=== PATIENT | male | born 1960 | race Caucasian/White ===

== ENCOUNTER → 2023-04-11 | Outpatient (CLI) | payer OTHER, SELFPAY ==
--- NOTE | 2023-04-11 16:40 | RAD_ITS ---
INDICATION: SOB -- STAT EXAMINATION/TECHNIQUE: X-RAY - XR Chest 2 Views COMPARISON: None. FINDINGS: Right lower lobe consolidation. The cardiomediastinal silhouette is unremarkable. No pleural effusion or pneumothorax. Degenerative changes of the thoracic spine. RAD/Chest PA and Lateral IMPRESSION: Right lower lobe pneumonia. Electronically Signed: Cory Diallo MD at 18:53 EST ,
== END | disposition home or self-care (01) ==
PROVIDERS: PCP Family Medicine; Referring Provider Internal Medicine Pulmonary Disease; Visit Provider Internal Medicine Pulmonary Disease
DX: R06.02 Shortness of breath (principal)
CPT/HCPCS: 71046

== ENCOUNTER → 2023-04-28 | Outpatient (CLI) | payer OTHER, SELFPAY ==
--- NOTE | 2023-04-28 07:20 | CT_ITS ---
INDICATION: RIGHT LUNG HERNIATION EXAMINATION: CT CHEST WITHOUT CONTRAST - CT Chest W/O Contrast Injection TECHNIQUE: Helically acquired images were obtained of the chest. A radiation dose optimization technique was used for this scan. IV Contrast dosage and agent: None. RADIATION DOSAGE (If Supplied By Facility): CTDIvol = ( 19.56 ) mGy, DLP = ( 1691.47 ) mGycm COMPARISON: Chest x-ray of 12/09/2022. FINDINGS: LUNGS, PLEURA AND LARGE AIRWAYS: There are old nonunited fractures of the posterior lateral aspect of the right seventh, eighth and ninth ribs there is right lateral bulging of the right lower lobe posterior to the right eighth rib. Adjacent mild tenting/scarring in the right lower lung. Mild scarring in the left lung base. No focal consolidation otherwise is seen. No evidence of effusions. The trachea and mainstem bronchi are unremarkable. No pneumothorax. THYROID: No thyroid lesions. HEART AND PERICARDIUM: Heart size is normal. No pericardial effusion. CORONARY ARTERIES: Coronary artery calcification is seen. VESSELS: Thoracic aorta is not dilated. MEDIASTINUM AND SYLVIA: No mediastinal or hilar adenopathy. Esophagus is unremarkable. No hiatal hernia. UPPER ABDOMEN: Hiatal hernia. Mild left hydronephrosis. BONES: Old fractures of the right third and fourth ribs. Degenerative changes of the spine. Mild compression of the vertebral bodies of T7 and T11 vertebrae probably chronic. CT/Chest without Contrast IMPRESSION: 1. 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 2. Persistent herniated right lower lobe laterally without evidence of pneumothorax. 3. Moderate stranding/scarring right lower lobe. 4. Small hiatal hernia. 5. Mild left hydronephrosis. Electronically Signed: Mike Milton MD at 14:56 EST ,
== END | disposition home or self-care (01) ==
LOC: CT 07:19
PROVIDERS: PCP Family Medicine; Referring Provider Internal Medicine Pulmonary Disease; Visit Provider Internal Medicine Pulmonary Disease
DX: K44.9 Diaphragmatic hernia without obstruction or gangrene (principal); R06.00 Dyspnea, unspecified
CPT/HCPCS: 71250